=== PATIENT | female | born 1980 | race Caucasian/White ===

== ENCOUNTER 2019-02-14 22:52 | Emergency (ER) | payer MEDICAID ==
[~2019-02-14] VITALS: Ht 162.6 cm; Wt 52.2 kg
[~2019-02-14 22:52] MED LIST: LAC PO; LEVAQUIN750 MG PO; LEVOFLOXACIN500 M1 PO; ZOF4 PO
[2019-02-15 01:50] VITALS: BP 156/80
== END 2019-02-15 01:50 | disposition home or self-care (01) ==
LOC: ED 22:52
DX: G43.909 Migraine, unspecified, not intractable, without status migrainosus (principal); I10 Essential (primary) hypertension; F32.9 Major depressive disorder, single episode, unspecified
CPT/HCPCS: J1885; J2765